=== PATIENT | female | born 1970 | race Hispanic/Latino ===

== ENCOUNTER 2017-11-16 15:42 | Emergency (ER) | payer MEDICARE ==
[2017-11-16] MEDS ORDERED: IOPAMIDOL-370 75 ML VIAL IV ONE (16:12)
[2017-11-16 16:23] LABS: APPEARANCE,URINE CLOUDY (CLEAR); BILIRUBIN,URINE NEGATIVE (NEGATIVE); COLOR,URINE YELLOW (YELLOW); GLUCOSE, URINE (UA) >=1000 mg/dL (NEGATIVE); KETONES,URINE 40 mg/dL (NEGATIVE); LEUKOCYTE ESTERASE ,URINE NEGATIVE (NEGATIVE); NITRATE,URINE NEGATIVE (NEGATIVE); OCCULT BLOOD,URINE NEGATIVE (NEGATIVE); PROTEIN,URINE NEGATIVE (NEGATIVE); UROBILINOGEN,URINE 0.2 mg/dL (0.2-1.0)
[2017-11-16 16:34] LABS: CREATININE 0.6 mg/dL (0.5-1.5); POTASSIUM 3.5 mmol/L (3.5-5.1)
[2017-11-16 16:36] LABS: BACTERIA,URINE Few /HPF (None Seen); MUCUS,URINE Few LPF (None Seen); RBC,URINE 0-1 /HPF (0-1); SQUAMOUS EPITHELIAL CELL,UR Moderate /HPF (0-2); WBC,URINE 0-1 /HPF (0-1)
[2017-11-16 16:39] LABS: ALBUMIN 3.4 g/dL (3.5-5.0); BILIRUBIN,DIRECT 0.1 mg/dL (0.0-0.3); BILIRUBIN,TOTAL 0.5 mg/dL (0.2-1.0)
[2017-11-16 16:44] LABS: BASOPHILS % (AUTO) 0.3 % (0.0-5.0); EOSINOPHILS % (AUTO) 1.5 % (0.0-8.0); HEMATOCRIT 37.7 % (36-48); LYMPHOCYTES % (AUTO) 20.3 % (21.0-51.0); MEAN CORPUSCULAR HEMOGLOBIN 31.6 pg (27.0-33.0); MEAN CORPUSCULAR HGB CONC 35.1 g/dL (32.0-36.0); MEAN CORPUSCULAR VOLUME 90.1 fL (79-99); MONOCYTES % (AUTO) 6.3 % (3.0-13.0); NEUTROPHILS % (AUTO) 71.6 % (40.0-77.0); PLATELET COUNT (AUTO) 302 K/uL (130-400); RED BLOOD CELL COUNT(AUTO) 4.18 MIL/uL (4.00-5.50); WHITE BLOOD COUNT (AUTO) 12.1 K/uL (4.8-10.8)
[2017-11-16] MEDS ORDERED: ONDANSETRON HCL 4 MG/2 ML VIAL ONE (18:15)
[2017-11-16] MEDS ORDERED: LIDOCAINE HCL-MPF 1% 2ML VIAL ONE (18:15)
[2017-11-16] MEDS ORDERED: MORPHINE SULFATE 2 MG/ML 1ML SYG ONE (18:16)
== END 2017-11-16 18:43 | disposition home or self-care (01) ==
LOC: EDH 15:42
DX: L02.214 Cutaneous abscess of groin (principal); J44.9 Chronic obstructive pulmonary disease, unspecified; E11.9 Type 2 diabetes mellitus without complications; E78.5 Hyperlipidemia, unspecified; I10 Essential (primary) hypertension; Z86.73 Personal history of transient ischemic attack (TIA), and cerebral infarction without residual deficits; Z88.2 Allergy status to sulfonamides; Z88.8 Allergy status to other drugs, medicaments and biological substances; Z90.49 Acquired absence of other specified parts of digestive tract; Z79.4 Long term (current) use of insulin; Z72.0 Tobacco use
CPT/HCPCS: 10060; 36415; 72193; 80048; 80076; 81001; 85025; 96374; 96375; 99285; J2405; J3490; Q9967

== ENCOUNTER 2018-05-15 00:05 | Emergency (ER) | payer MEDICARE ==
[2018-05-15] MEDS ORDERED: METHYLPREDNISOLONE SOD SUCC 40MG/ML 1ML ONE (01:24)
[2018-05-15] MEDS ORDERED: ORPHENADRINE CITRATE 30 MG/ML ML ONE (01:24)
[2018-05-15] MEDS ORDERED: KETOROLAC TROMETHAMINE 30MG/ML ONE (01:25)
== END 2018-05-15 02:44 | disposition home or self-care (01) ==
LOC: EDH 00:05
DX: M54.16 Radiculopathy, lumbar region (principal); J44.9 Chronic obstructive pulmonary disease, unspecified; E78.5 Hyperlipidemia, unspecified; E11.9 Type 2 diabetes mellitus without complications; I10 Essential (primary) hypertension; Z86.73 Personal history of transient ischemic attack (TIA), and cerebral infarction without residual deficits; Z79.4 Long term (current) use of insulin; Z90.49 Acquired absence of other specified parts of digestive tract; Z90.710 Acquired absence of both cervix and uterus; Z72.0 Tobacco use; Z88.2 Allergy status to sulfonamides; Z88.1 Allergy status to other antibiotic agents
CPT/HCPCS: 96372 ×3; 99283; A4218; J1885; J2360; J2920

== ENCOUNTER 2018-06-11 16:58 | Emergency (ER) | payer MEDICARE ==
[2018-06-11] MEDS ORDERED: KETOROLAC TROMETHAMINE 15MG/ML ONE ×2 (18:11→20:12)
[2018-06-11 18:28] LABS: BASOPHILS % (AUTO) 1.3 % (0.0-5.0); EOSINOPHILS % (AUTO) 1.8 % (0.0-8.0); HEMATOCRIT 37.5 % (36-48); LYMPHOCYTES % (AUTO) 29.6 % (21.0-51.0); MEAN CORPUSCULAR HEMOGLOBIN 37.8 pg (27.0-33.0); MEAN CORPUSCULAR HGB CONC 42.3 g/dL (32.0-36.0); MEAN CORPUSCULAR VOLUME 89.4 fL (79-99); MONOCYTES % (AUTO) 5.7 % (3.0-13.0); NEUTROPHILS % (AUTO) 61.6 % (40.0-77.0); NUCLEATED RED BLOOD CELLS 0.2 % (0.0-0.19); PLATELET COUNT (AUTO) 272 K/uL (130-400); RED CELL DISTRIBUTION WIDTH 12.9 % (11.0-15.5); WHITE BLOOD COUNT (AUTO) 7.3 K/uL (4.8-10.8)
[2018-06-11 18:32] LABS: APPEARANCE,URINE Clear (CLEAR); BILIRUBIN,URINE Negative (NEGATIVE); COLOR,URINE Yellow (YELLOW); GLUCOSE, URINE (UA) >=1000 mg/dL (NEGATIVE); KETONES,URINE Negative (NEGATIVE); LEUKOCYTE ESTERASE ,URINE Negative (NEGATIVE); NITRATE,URINE Negative (NEGATIVE); OCCULT BLOOD,URINE Negative (NEGATIVE); PH,URINE 5.5 (5.0-8.0); PROTEIN,URINE Negative (NEGATIVE); UROBILINOGEN,URINE 0.2 mg/dL (0.2-1.0)
[2018-06-11 18:52] LABS: POTASSIUM 4.2 mmol/L (3.5-5.1)
[2018-06-11] MEDS ORDERED: SODIUM CHLORIDE 0.9% 1000ML 1,000 ML IV ONE (19:17)
[2018-06-11] MEDS ORDERED: INSULIN HUMULIN R 100 UNIT/ML 3ML ONE ×2 (19:22→19:31)
[2018-06-11 19:24] LABS: CREATININE 0.4 mg/dL (0.5-1.5)
[2018-06-11 19:25] LABS: BILIRUBIN,TOTAL 0.2 mg/dL (0.2-1.0)
[2018-06-11 19:26] LABS: ALBUMIN 3.1 g/dL (3.5-5.0); TOTAL PROTEIN, SERUM 5.6 g/dL (6.0-8.3)
[2018-06-11 19:59] LABS: ABG HCO3 22.2 mmol/L (21.0-28.0); ABG OXYGEN SATURATION 96.3 % (95.0-99.0); ABG PCO2 37 mmHg (32-45)
== END 2018-06-11 20:24 | disposition home or self-care (01) ==
LOC: EDH 16:58
DX: M54.16 Radiculopathy, lumbar region (principal); G89.29 Other chronic pain; I10 Essential (primary) hypertension; E11.9 Type 2 diabetes mellitus without complications; J44.9 Chronic obstructive pulmonary disease, unspecified; E78.5 Hyperlipidemia, unspecified; Z90.710 Acquired absence of both cervix and uterus; Z90.49 Acquired absence of other specified parts of digestive tract; Z86.73 Personal history of transient ischemic attack (TIA), and cerebral infarction without residual deficits; Z98.890 Other specified postprocedural states; Z72.0 Tobacco use; Z79.4 Long term (current) use of insulin; Z88.2 Allergy status to sulfonamides; Z88.1 Allergy status to other antibiotic agents
CPT/HCPCS: 36415; 36600; 74176; 80053; 81003; 82803; 82948; 83690; 85025; 96374; 96375; 96376; 99284; J1815 ×2; J1885 ×2; J7030

== ENCOUNTER → 2018-06-16 | Outpatient (CLI) | payer MEDICARE ==
[2018-06-16 13:33] LABS: CREATININE 0.5 mg/dL (0.5-1.5)
== END | disposition home or self-care (01) ==
LOC: LAB 12:45
PROVIDERS: ATTEND Neurological Surgery
DX: M54.16 Radiculopathy, lumbar region (principal)
CPT/HCPCS: 36415; 82565; 84520

== ENCOUNTER → 2018-06-17 | Outpatient (CLI) | payer MEDICARE ==
[~2018-06-17] MED LIST: GADODIAMIDE 10 MMOL/20 ML ML IV ONE
== END | disposition home or self-care (01) ==
LOC: RAH 11:00
PROVIDERS: ATTEND Neurological Surgery
DX: M51.27 Other intervertebral disc displacement, lumbosacral region (principal); M48.07 Spinal stenosis, lumbosacral region; N28.1 Cyst of kidney, acquired; M51.37 Other intervertebral disc degeneration, lumbosacral region
CPT/HCPCS: 72158; A9579

== ENCOUNTER 2018-06-19 04:15 | Emergency (ER) | payer MEDICARE ==
[2018-06-19 05:05] LABS: EOSINOPHILS % (AUTO) 1.8 % (0.0-8.0); HEMATOCRIT 38.9 % (36-48); LYMPHOCYTES % (AUTO) 42.6 % (21.0-51.0); MEAN CORPUSCULAR HEMOGLOBIN 31.1 pg (27.0-33.0); MEAN CORPUSCULAR HGB CONC 34.7 g/dL (32.0-36.0); MEAN CORPUSCULAR VOLUME 89.6 fL (79-99); MONOCYTES % (AUTO) 6.3 % (3.0-13.0); NEUTROPHILS % (AUTO) 48.3 % (40.0-77.0); NUCLEATED RED BLOOD CELLS 0.3 % (0.0-0.19); PLATELET COUNT (AUTO) 262 K/uL (130-400); RED BLOOD CELL COUNT(AUTO) 4.34 MIL/uL (4.00-5.50); RED CELL DISTRIBUTION WIDTH 12.9 % (11.0-15.5); WHITE BLOOD COUNT (AUTO) 8.6 K/uL (4.8-10.8)
[2018-06-19 05:11] LABS: APPEARANCE,URINE Clear (CLEAR); BILIRUBIN,URINE Negative (NEGATIVE); COLOR,URINE Yellow (YELLOW); GLUCOSE, URINE (UA) >=1000 mg/dL (NEGATIVE); KETONES,URINE 15 mg/dL (NEGATIVE); LEUKOCYTE ESTERASE ,URINE Negative (NEGATIVE); NITRATE,URINE Negative (NEGATIVE); OCCULT BLOOD,URINE Negative (NEGATIVE); PH,URINE 5.5 (5.0-8.0); PROTEIN,URINE Negative (NEGATIVE); UROBILINOGEN,URINE 0.2 mg/dL (0.2-1.0)
[2018-06-19 05:13] LABS: CREATININE 0.5 mg/dL (0.5-1.5)
[2018-06-19 05:17] LABS: ALBUMIN 3.1 g/dL (3.5-5.0); BILIRUBIN,TOTAL 0.6 mg/dL (0.2-1.0); TOTAL PROTEIN, SERUM 7.9 g/dL (6.0-8.3)
[2018-06-19 05:20] LABS: BACTERIA,URINE None Seen /HPF (None Seen); MUCUS,URINE Rare LPF (None Seen); RBC,URINE 0-1 /HPF (0-1); SQUAMOUS EPITHELIAL CELL,UR Few /HPF (0-2); WBC,URINE None Seen /HPF (0-1); YEAST,URINE BUDDING None Seen /HPF (None Seen)
[2018-06-19] MEDS ORDERED: LORAZEPAM 2 MG/ML 1 ML VIAL ONE (05:48)
== END 2018-06-19 06:45 | disposition home or self-care (01) ==
LOC: EDH 04:15
DX: R07.9 Chest pain, unspecified (principal); R06.02 Shortness of breath; F41.9 Anxiety disorder, unspecified; J44.9 Chronic obstructive pulmonary disease, unspecified; E11.9 Type 2 diabetes mellitus without complications; E78.5 Hyperlipidemia, unspecified; I10 Essential (primary) hypertension; Z86.73 Personal history of transient ischemic attack (TIA), and cerebral infarction without residual deficits; Z79.4 Long term (current) use of insulin; Z90.49 Acquired absence of other specified parts of digestive tract; Z90.710 Acquired absence of both cervix and uterus; Z88.2 Allergy status to sulfonamides; Z88.1 Allergy status to other antibiotic agents
CPT/HCPCS: 36415; 71045; 80053; 81001; 84484; 85025; 93005; 96374; 99284; J2060

== ENCOUNTER → 2018-08-18 | Outpatient (CLI) | payer MEDICARE | END | disposition home or self-care (01) | LOC: RAH 09:43 | PROVIDERS: ATTEND Physical Medicine & Rehabilitation | DX: M54.16 Radiculopathy, lumbar region (principal); M54.12 Radiculopathy, cervical region | CPT/HCPCS: 72052; 72114 ==

== ENCOUNTER → 2018-10-28 | Outpatient (CLI) | payer MEDICARE | END | disposition home or self-care (01) | LOC: RAH 09:41 | PROVIDERS: ATTEND Neurological Surgery | DX: M51.16 Intervertebral disc disorders with radiculopathy, lumbar region (principal) | CPT/HCPCS: 72148 ==

== ENCOUNTER 2018-11-05 05:51 | Inpatient (IN) | payer MEDICARE ==
[2018-10-31 12:17] LABS: BASOPHILS % (AUTO) 0.7 % (0.0-5.0); EOSINOPHILS % (AUTO) 1.6 % (0.0-8.0); HEMATOCRIT 39.1 % (36-48); LYMPHOCYTES % (AUTO) 33.7 % (21.0-51.0); MEAN CORPUSCULAR HEMOGLOBIN 31.8 pg (27.0-33.0); MEAN CORPUSCULAR HGB CONC 35.3 g/dL (32.0-36.0); MEAN CORPUSCULAR VOLUME 90.1 fL (79-99); MONOCYTES % (AUTO) 5.5 % (3.0-13.0); NEUTROPHILS % (AUTO) 58.5 % (40.0-77.0); NUCLEATED RED BLOOD CELLS 0.1 % (0.0-0.19); PLATELET COUNT (AUTO) 271 K/uL (130-400); RED BLOOD CELL COUNT(AUTO) 4.34 MIL/uL (4.00-5.50); RED CELL DISTRIBUTION WIDTH 12.8 % (11.0-15.5); WHITE BLOOD COUNT (AUTO) 7.9 K/uL (4.8-10.8)
[2018-10-31 12:25] LABS: CREATININE 0.6 mg/dL (0.5-1.5); POTASSIUM 3.8 mmol/L (3.5-5.1)
[2018-10-31 12:36] VITALS: BP 139/86
--- NOTE | 2018-11-04 12:26 | NUR ---
LABS INFORMED DR. FRIEDA GÓMEZ ASST OF ABNORMAL SODIUM. ORDERS RECEIVED PER DR. MALAVE TO REPEAT BMP ON AM OF PROCEDURE.
[~2018-11-05] VITALS: Ht 163.8 cm; Wt 81.1 kg
[2018-11-05] VITALS (22 sets, daily range): BP systolic 127–155; BP diastolic 76–97
[~2018-11-05 05:51] MED LIST changes: +ALBU1.252 IH; +ALLO100T PO; +ALPR2TAB2 PO; +AMIT50TA3 PO; +FURO-152 PO; +GABA-531 PO; -GADODIAMIDE 10 MMOL/20 ML ML IV ONE; +INSU10VI3 SQ; +INSU3INS9 SQ; +MONT10TA21 PO; +NITR0.4T50 SL; +RIZA10TA27 PO; +ROPI1TAB11 PO
[2018-11-05] MEDS ORDERED: SODIUM CHLORIDE 0.9% 1000ML 1,000 ML IV ONE (06:40)
[2018-11-05] MEDS ORDERED: CLINDAMYCIN 900 MG/D5% WATER 50 ML IV ONE (06:40)
[2018-11-05 07:22] LABS: CREATININE 0.5 mg/dL (0.5-1.5); POTASSIUM 3.6 mmol/L (3.5-5.1)
[2018-11-05] MEDS ORDERED: PROPOFOL 10 MG/ML 20ML VIAL IV ONE (07:31)
[2018-11-05] MEDS ORDERED: SUCCINYLCHOLINE 200MG/10ML SYR ONE (07:31)
[2018-11-05] MEDS ORDERED: DEXAMETHASONE SOD PHOSPHATE 10MG/ML 1ML VIAL ONE (07:31)
[2018-11-05] MEDS ORDERED: LIDOCAINE PF 2% 5ML ABBOJECT ONE (07:31)
[2018-11-05] MEDS ORDERED: ONDANSETRON HCL 4 MG/2 ML VIAL ONE (07:32)
[2018-11-05] MEDS ORDERED: NEOSTIGMINE 5MG/5ML SYR IV ONE (07:32)
[2018-11-05] MEDS ORDERED: FENTANYL CITRATE PF 50 MCG/1 ML 2ML VIAL ONE ×3 (07:32→11:45)
[2018-11-05] MEDS ORDERED: ROCURONIUM 10MG/1ML SYR 10 MG/ML ML ONE (07:32)
[2018-11-05] MEDS ORDERED: MIDAZOLAM HCL 1 MG/ML 2ML VIAL ONE (07:32)
[2018-11-05] MEDS ORDERED: GLYCOPYRROLATE 1 MG/5 ML SYRINGE ONE (07:32)
[2018-11-05] MEDS ORDERED: BUPIVACAINE/EPI/PF 0.25% 30ML VIAL IJ ONE (08:57)
[2018-11-05] MEDS ORDERED: DURAMORPH PF1 MG/ML 10ML AMP IV ONE (08:58)
[2018-11-05] MEDS ORDERED: THROMBIN-JMI 20000 UNIT KIT TP ONE (08:59)
[2018-11-05] MEDS ORDERED: BACITRACIN 50,000 UNIT VIAL ONE (08:59)
[2018-11-05] MEDS ORDERED: LACTATED RINGERS 1000ML 1,000 ML IV SCH (12:33)
[2018-11-05] MEDS ORDERED: MORPHINE SULFATE 2 MG/ML 1ML SYG IVP PRN (12:45)
[2018-11-05] MEDS ORDERED: SODIUM CHLORIDE 0.9% 10 ML VIAL IVP PRN (12:45)
[2018-11-05] MEDS ORDERED: ALBUTEROL SULFATE 0.042% 1.25 MG/3 ML INH IH PRN (12:45)
[2018-11-05] MEDS: DEXAMETHASONE SOD PHOSPHATE 4 MG/ML 1ML VIAL IVP SCH ×2 (12:45→20:53)
[2018-11-05] MEDS ORDERED: NITROGLYCERIN 0.4 MG SL TAB SL PRN (12:45)
[2018-11-05] MEDS ORDERED: PROMETHAZINE HCL 25 MG/ML 1ML AMPULE IM PRN (12:45)
[2018-11-05] MEDS ORDERED: MEPERIDINE-PF 25 MG/ML SYG ONE ×2 (12:51→13:00)
--- NOTE | 2018-11-05 13:16 | NUR ---
PATIENT TRYING TO QUIT, DOWN TO 2 CIGARETTES A WEEK Addendum: 11/05/18 at 1326 by DELANEY LANDEROS RT Amended: Links added.
[2018-11-05] MEDS ORDERED: INSULIN HUMULIN R 100 UNIT/ML 3ML ONE (13:27)
--- NOTE | 2018-11-05 13:50 | NUR ---
PT ARRIVED TO THE FLOOR , DENIES SOB OR CHEST PAIN VITAL SIGNS STABLE WILL CONTINUE TO MONITOR CALL LIGHT AT REACH W TEACH BACK GONZALEZ CCESSFULLY
[2018-11-05] MEDS: GABAPENTIN 300 MG CAPSULE PO SCH ×2 (14:00→20:49)
[2018-11-05] MEDS: CLINDAMYCIN 900 MG/D5% WATER 50 ML IV SCH ×2 (16:08→18:45)
[2018-11-05] MEDS: INSULIN HUMULIN 70/30 100 UNIT/ML 3ML SQ SCH (16:14)
--- NOTE | 2018-11-05 17:10 | NUR ---
INITIAL Met w patient / family at bedside, aaox3, live w son, daughter to provide ride at discharge; has a cane at hoem, no stairs shower chair; home health to be set up by dr. gomez's office and pt is aware ([facility]) dcp home, no concerns voiced Addendum: 11/06/18 at 1437 by ALBERTO FLETCHER RN CM Amended: Links added.
[2018-11-05] MEDS: ALPRAZOLAM 1 MG TAB PO SCH (20:56)
[2018-11-05] MEDS ORDERED: ROPINIROLE HCL 1 MG TABLET PO SCH (21:00)
[2018-11-05] MEDS ORDERED: AMITRIPTYLINE HCL 25 MG TABLET PO SCH (21:00)
[2018-11-06] MEDS: HYDROCODONE/ACETAMINOPHEN 5/325 MG TAB PO PRN ×2 (00:07→09:27)
[2018-11-06 00:16] VITALS: BP 135/80
[2018-11-06] MEDS: CLINDAMYCIN 900 MG/D5% WATER 50 ML IV SCH (00:45)
[2018-11-06] MEDS: DEXAMETHASONE SOD PHOSPHATE 4 MG/ML 1ML VIAL IVP SCH ×2 (02:43→09:20)
[2018-11-06] MEDS ORDERED: DEXTROSE 50%-WATER 50 ML DISP.SYRIN IV PRN (03:00)
[2018-11-06] MEDS ORDERED: GLUCAGON 1MG KIT 1 MG ML IM PRN (03:00)
[2018-11-06 04:45] VITALS: BP 110/70
[2018-11-06] MEDS ORDERED: CLINDAMYCIN 900 MG/D5% WATER 50 ML IV SCH (06:00)
[2018-11-06] MEDS: INSULIN HUMULIN 70/30 100 UNIT/ML 3ML SQ SCH (07:10)
[2018-11-06] MEDS ORDERED: INSULIN HUMULIN R 100 UNIT/ML 3ML SQ SCH (07:30)
[2018-11-06 08:00] VITALS: BP 106/66
[2018-11-06] MEDS ORDERED: MONTELUKAST SODIUM 10 MG TAB PO SCH (09:00)
[2018-11-06] MEDS: ALPRAZOLAM 1 MG TAB PO SCH (09:00)
[2018-11-06] MEDS ORDERED: INSULIN DEGLUDEC SQ SCH (09:00)
[2018-11-06] MEDS ORDERED: LIRAGLUTIDE SQ SCH (09:00)
[2018-11-06] MEDS ORDERED: FUROSEMIDE 20 MG TABLET PO SCH (09:00)
[2018-11-06] MEDS ORDERED: ALLOPURINOL 100 MG TABLET PO SCH (09:00)
[2018-11-06] MEDS: GABAPENTIN 300 MG CAPSULE PO SCH (09:26)
[2018-11-06] MEDS ORDERED: MAXALT 10 MG PO SCH (12:00)
--- NOTE | 2018-11-06 12:25 | NUR ---
DISCHARGE DISCHARGE TEACHING DONE WITH PATIENT AND FAMILY USING TEACHBACK METHOD, VERBALIZED UNDERSTANDING. NO NOTED SOB OR DISTRESS. NEW MEDICATION ADMINISTRATION TEACHING DONE WITH PATIENT AND FAMILY USING TEACHBACK METHOD, VERBALIZED UNDERSTANDING. PT AWARE OF NEED TO ATTEND DR. MALAVE APPOINTMENT, STAPLE REMOVAL KIT GIVEN TO DAUGHTER. DRESSING TO LOWER BACK CHANGED PER ORDERS, DRY DRESSING APPLIED. LALA ARE INTACT, INCISION IS WELL APPROXIMATED. IV REMOVED, CATH TIP INTACT. PENDING TO BE TRANSFERRED OUT VIA PRIVATE VEHICLE.
== END 2018-11-06 11:30 | disposition home health service (06) | DRG 520 ==
LOC: DAHIP 05:51 → 4AH 13:19
PROVIDERS: ADMIT Neurological Surgery; ATTEND Neurological Surgery
PROC: BR1B1ZZ Fluoroscopy of Lumbosacral Joint using Low Osmolar Contrast (ICD-10-PCS; 2018-11-05)
PROC: 4A11X4G Monitoring of Peripheral Nervous Electrical Activity, Intraoperative, External Approach (ICD-10-PCS; 2018-11-05)
PROC: 01NB0ZZ Release Lumbar Nerve, Open Approach (ICD-10-PCS; 2018-11-05)
PROC: 0SB20ZZ Excision of Lumbar Vertebral Disc, Open Approach (ICD-10-PCS; principal; 2018-11-05 08:56)
PROC: 0SB40ZZ Excision of Lumbosacral Disc, Open Approach (ICD-10-PCS; 2018-11-05 08:56)
PROC: BR191ZZ Fluoroscopy of Lumbar Spine using Low Osmolar Contrast (ICD-10-PCS; 2018-11-05 08:56)
DX: M51.16 Intervertebral disc disorders with radiculopathy, lumbar region (principal); M51.17 Intervertebral disc disorders with radiculopathy, lumbosacral region; E66.9 Obesity, unspecified; Z90.49 Acquired absence of other specified parts of digestive tract; Z90.711 Acquired absence of uterus with remaining cervical stump; Z88.2 Allergy status to sulfonamides; Z88.8 Allergy status to other drugs, medicaments and biological substances; Z68.30 Body mass index [BMI] 30.0-30.9, adult
CPT/HCPCS: 36415; 36591; 71045; 72020; 80048; 82948; 85025; 94664; 97039; A4344; G0378; J0330; J1100; J1815; J2001; J2175; J2250; J2274; J2405; J2704; J2710; J3010; J3490; J7030; J7120

== ENCOUNTER → 2019-02-20 | Outpatient (CLI) | payer MEDICARE | END | disposition home or self-care (01) | LOC: RAH 12:53 | PROVIDERS: ATTEND Physical Medicine & Rehabilitation | DX: M51.16 Intervertebral disc disorders with radiculopathy, lumbar region (principal); M48.061 Spinal stenosis, lumbar region without neurogenic claudication | CPT/HCPCS: 72148 ==

== ENCOUNTER → 2019-03-16 | Outpatient (CLI) | payer MEDICARE | END | disposition home or self-care (01) | LOC: RAH 09:59 | PROVIDERS: ATTEND Physical Medicine & Rehabilitation | DX: M25.562 Pain in left knee (principal) | CPT/HCPCS: 73562 ==

== ENCOUNTER 2021-03-03 12:51 | Emergency (ER) | payer MEDICARE ==
[~2021-03-03] VITALS: Ht 162.6 cm; Wt 76.2 kg
[~2021-03-03 12:51] MED LIST changes: -ROPI1TAB11 PO; +ROPI1TAB13 PO
[2021-03-03 13:17] LABS: BASOPHILS % (AUTO) 0.3 % (0.0-5.0); EOSINOPHILS % (AUTO) 1.3 % (0.0-8.0); HEMATOCRIT 40.8 % (36-48); LYMPHOCYTES % (AUTO) 35.7 % (21.0-51.0); MEAN CORPUSCULAR HEMOGLOBIN 30.3 pg (27.0-33.0); MEAN CORPUSCULAR HGB CONC 34.1 g/dL (32.0-36.0); MEAN CORPUSCULAR VOLUME 88.9 fL (79-99); MONOCYTES % (AUTO) 5.6 % (3.0-13.0); NEUTROPHILS % (AUTO) 56.8 % (40.0-77.0); PLATELET COUNT (AUTO) 265 K/uL (130-400); RED BLOOD CELL COUNT(AUTO) 4.59 MIL/uL (4.00-5.50); RED CELL DISTRIBUTION WIDTH 12.5 % (11.0-15.5); WHITE BLOOD COUNT (AUTO) 8.9 K/uL (4.8-10.8)
[2021-03-03 13:26] LABS: CREATININE 0.7 mg/dL (0.5-1.5); POTASSIUM 3.6 mmol/L (3.5-5.1)
[2021-03-03 13:30] LABS: ALBUMIN 3.6 g/dL (3.5-5.0); BILIRUBIN,TOTAL 0.3 mg/dL (0.2-1.0); TOTAL PROTEIN, SERUM 8.1 g/dL (6.0-8.3)
[2021-03-03 13:37] VITALS: BP 145/94
[2021-03-03 13:46] LABS: APPEARANCE,URINE Clear (CLEAR); BILIRUBIN,URINE Negative (NEGATIVE); COLOR,URINE Yellow (YELLOW); GLUCOSE, URINE (UA) >=1000 mg/dL (NEGATIVE); KETONES,URINE Trace mg/dL (NEGATIVE); LEUKOCYTE ESTERASE ,URINE Negative (NEGATIVE); NITRATE,URINE Negative (NEGATIVE); OCCULT BLOOD,URINE Negative (NEGATIVE); PH,URINE 5.5 (5.0-8.0); PROTEIN,URINE Negative (NEGATIVE); UROBILINOGEN,URINE 0.2 mg/dL (0.2-1.0)
[2021-03-03 14:19] LABS: BACTERIA,URINE Few /HPF (None Seen); MUCUS,URINE Moderate LPF (None Seen); RBC,URINE 0-1 /HPF (0-1); WBC,URINE 0-1 /HPF (0-1)
[2021-03-03] MEDS ORDERED: DIATR MEGLU/DIATRIZOATE SODIUM 30 ML BOTTLE ONE (14:22)
[2021-03-03] MEDS ORDERED: MORPHINE 4 MG SYG IV ONE (14:25)
[2021-03-03] MEDS ORDERED: ONDANSETRON 4MG INJ ONE (14:27)
[2021-03-03] MEDS ORDERED: MORPHINE 4 MG SYG ONE (14:28)
[2021-03-03] MEDS ORDERED: ONDANSETRON 4MG INJ IVP ONE (14:30)
[2021-03-03] MEDS ORDERED: IOHEXOL-350 75 ML VIAL IV ONE (14:38)
[2021-03-03] MEDS ORDERED: DICY20TA2 PO (16:04)
== END 2021-03-03 16:19 | disposition home or self-care (01) ==
LOC: EDH 12:51
DX: R10.31 Right lower quadrant pain (principal); E11.9 Type 2 diabetes mellitus without complications; E78.5 Hyperlipidemia, unspecified; I10 Essential (primary) hypertension; J44.9 Chronic obstructive pulmonary disease, unspecified; Z79.899 Other long term (current) drug therapy; Z79.4 Long term (current) use of insulin; Z88.1 Allergy status to other antibiotic agents
CPT/HCPCS: 36415; 74177; 80053; 81001; 82150; 83690; 85025; 96374; 96375; 99285; J2270; J2405; Q9963; Q9967

== ENCOUNTER 2021-07-26 06:26 | Day surgery (SDC) | payer MEDICARE ==
[2021-07-24 09:32] LABS: BASOPHILS % (AUTO) 0.4 % (0.0-5.0); EOSINOPHILS % (AUTO) 2.6 % (0.0-8.0); HEMATOCRIT 40.4 % (36-48); LYMPHOCYTES % (AUTO) 33.5 % (21.0-51.0); MEAN CORPUSCULAR HEMOGLOBIN 30.8 pg (27.0-33.0); MEAN CORPUSCULAR HGB CONC 34.7 g/dL (32.0-36.0); MONOCYTES % (AUTO) 6.3 % (3.0-13.0); NEUTROPHILS % (AUTO) 56.9 % (40.0-77.0); PLATELET COUNT (AUTO) 294 K/uL (130-400); RED BLOOD CELL COUNT(AUTO) 4.54 MIL/uL (4.00-5.50); RED CELL DISTRIBUTION WIDTH 12.6 % (11.0-15.5); WHITE BLOOD COUNT (AUTO) 8.9 K/uL (4.8-10.8)
[2021-07-24 09:41] LABS: CREATININE 0.5 mg/dL (0.5-1.5); POTASSIUM 4.1 mmol/L (3.5-5.1)
[2021-07-25 11:08] VITALS: BP 130/90
[2021-07-26] VITALS (17 sets, daily range): BP systolic 110–151; BP diastolic 78–99
[~2021-07-26] VITALS: Ht 162.6 cm; Wt 75.7 kg
[~2021-07-26 06:26] MED LIST changes: -ALLO100T PO; -ALPR2TAB2 PO; -AMIT50TA3 PO; +CETI10CA5 PO; +EMPA25TA PO; -FURO-152 PO; -INSU10VI3 SQ; -INSU3INS9 SQ; +LISI1TAB51 PO; +MELO15TA12 PO; -MONT10TA21 PO; -NITR0.4T50 SL; -RIZA10TA27 PO; -ROPI1TAB13 PO; +ROSU40TA21 PO; +SEMA1PEN3 SQ
[2021-07-26] MEDS ORDERED: PROPOFOL 10 MG/ML 20ML VIAL IV ONE (07:04)
[2021-07-26] MEDS ORDERED: FENTANYL CITRATE PF 50 MCG/1 ML 2ML VIAL ONE (07:04)
[2021-07-26] MEDS ORDERED: LIDOCAINE PF 100MG/5ML (2%) SYRINGE 5ML ONE (07:04)
[2021-07-26] MEDS ORDERED: MIDAZOLAM HCL 1 MG/ML 2ML VIAL ONE (07:05)
[2021-07-26] MEDS ORDERED: 0.9%NACL 1000ML 1,000 ML IV ONE (07:11)
[2021-07-26] MEDS ORDERED: INSULIN HUMULIN R 100 UNIT/ML 3ML ONE (07:44)
[2021-07-26] MEDS: CLINDAMYCIN IVPB 900MG/50ML 50 ML IV SCH ×2 (08:00→08:30)
[2021-07-26] MEDS ORDERED: CLIN300C3 PO (09:25)
[2021-07-26] MEDS ORDERED: ACET1TAB25 PO (09:25)
[2021-07-26] MEDS ORDERED: MEPERIDINE-PF 25 MG/ML SYG ONE (09:58)
== END 2021-07-26 11:00 | disposition home or self-care (01) ==
LOC: DAH 06:26
PROVIDERS: ATTEND Orthopaedic Surgery
DX: M94.8X6 Other specified disorders of cartilage, lower leg (principal); M23.91 Unspecified internal derangement of right knee; Z20.822 Contact with and (suspected) exposure to COVID-19; M25.561 Pain in right knee; G89.29 Other chronic pain; E11.9 Type 2 diabetes mellitus without complications; I10 Essential (primary) hypertension; J45.909 Unspecified asthma, uncomplicated; E66.9 Obesity, unspecified; M10.9 Gout, unspecified; Z79.899 Other long term (current) drug therapy; Z90.710 Acquired absence of both cervix and uterus; Z98.890 Other specified postprocedural states; Z86.73 Personal history of transient ischemic attack (TIA), and cerebral infarction without residual deficits; Z98.891 History of uterine scar from previous surgery; Z87.891 Personal history of nicotine dependence; Z79.4 Long term (current) use of insulin
CPT/HCPCS: 29877; 36415; 80048; 82948 ×2; 85025; 87635; A4215; A4221; A4222; A4223; A4649; A4663; A4930 ×2; A6223; C9803; J1815; J2001; J2175; J2250; J2704; J3010; J3490; J7030; J7120

== ENCOUNTER → 2022-07-09 | Outpatient (CLI) | payer OTHER, MEDICARE ==
[~2022-07-09] MED LIST changes: +ACET-2079 PO; +CLIN300C3 PO
== END | disposition home or self-care (01) ==
LOC: SHCH 13:45
PROVIDERS: ATTEND Internal Medicine
DX: E78.5 Hyperlipidemia, unspecified (principal); I10 Essential (primary) hypertension
CPT/HCPCS: 93306

== ENCOUNTER → 2022-08-09 | Outpatient (CLI) | payer OTHER, MEDICARE | END | disposition home or self-care (01) | LOC: RAH 10:41 | PROVIDERS: ATTEND Internal Medicine | DX: I70.202 Unspecified atherosclerosis of native arteries of extremities, left leg (principal); R68.89 Other general symptoms and signs | CPT/HCPCS: 93925 ==

== ENCOUNTER 2022-12-10 05:59 | Day surgery (SDC) | payer OTHER, MEDICARE ==
[2022-12-06 10:44] LABS: BASOPHILS % (AUTO) 0.4 % (0.0-5.0); EOSINOPHILS % (AUTO) 2.6 % (0.0-8.0); HEMATOCRIT 40.8 % (36-48); LYMPHOCYTES % (AUTO) 36.4 % (21.0-51.0); MEAN CORPUSCULAR HEMOGLOBIN 31.8 pg (27.0-33.0); MEAN CORPUSCULAR HGB CONC 35.3 g/dL (32.0-36.0); MEAN CORPUSCULAR VOLUME 90.1 fL (79-99); MONOCYTES % (AUTO) 6.7 % (3.0-13.0); NEUTROPHILS % (AUTO) 53.6 % (40.0-77.0); PLATELET COUNT (AUTO) 257 K/uL (130-400); RED BLOOD CELL COUNT(AUTO) 4.53 MIL/uL (4.00-5.50); RED CELL DISTRIBUTION WIDTH 12.3 % (11.0-15.5); WHITE BLOOD COUNT (AUTO) 7.3 K/uL (4.8-10.8)
[2022-12-06 11:00] LABS: APPEARANCE,URINE CLEAR (CLEAR); BILIRUBIN,URINE NEGATIVE (NEGATIVE); COLOR,URINE LIGHT-YELLOW (YELLOW); GLUCOSE, URINE (UA) >=1000 mg/dL (NEGATIVE); KETONES,URINE 10 mg/dL (NEGATIVE); LEUKOCYTE ESTERASE ,URINE NEGATIVE Leu/uL (NEGATIVE); NITRATE,URINE NEGATIVE (NEGATIVE); OCCULT BLOOD,URINE NEGATIVE (NEGATIVE); PH,URINE 5.5 (5.0-8.0); PROTEIN,URINE NEGATIVE (NEGATIVE); UROBILINOGEN,URINE 0.2 mg/dL (0.2-1.0)
[2022-12-06 11:02] VITALS: BP 131/83
[2022-12-06 11:08] LABS: INR 0.93 (0.85-1.15); PROTHROMBIN TIME 10.2 SEC (9.6-11.6)
[2022-12-06 11:10] LABS: PARTIAL THROMBOPLASTIN TIME 27.6 SEC (26.3-35.5)
[2022-12-06 11:14] LABS: POTASSIUM 4.3 mmol/L (3.5-5.1)
[2022-12-06 11:18] LABS: B-TYPE NATRIURETIC PEPTIDE 12 pg/mL (0-100)
[2022-12-06 11:33] LABS: BACTERIA,URINE RARE /HPF (None Seen); MUCUS,URINE RARE LPF (None Seen); SQUAMOUS EPITHELIAL CELL,UR RARE /HPF (0-2); WBC,URINE 0-1 /HPF (0-1)
[2022-12-06 12:06] LABS: CREATININE 0.6 mg/dL (0.5-1.5)
[~2022-12-10] VITALS: Ht 162.6 cm; Wt 74.8 kg
[2022-12-10] VITALS (8 sets, daily range): BP systolic 106–133; BP diastolic 62–85
[~2022-12-10 05:59] MED LIST changes: -ACET-2079 PO; -ALBU1.252 IH; +ALBU90AE IH; +ALPR1TAB7 PO; -CETI10CA5 PO; -CLIN300C3 PO; +EMPA1TAB19 PO; -EMPA25TA PO; +EVOL140S2 SQ; +FAMO40TA75 PO; +FLUT1BLS3 IH; -GABA-531 PO; +ICOS1CAP PO; +INSU100I13 SQ; -MELO15TA12 PO; +MONT-39 PO; +PIOG30TA10 PO; +PLEC3TAB2 PO; -SEMA1PEN3 SQ; +TIRZ5PEN SQ
[2022-12-10] MEDS ORDERED: 0.9%NACL 1000ML 1,000 ML IV ONE (06:43)
[2022-12-10] MEDS ORDERED: FENTANYL CITRATE PF 50 MCG/1 ML 2ML VIAL ONE (07:11)
[2022-12-10] MEDS ORDERED: NITROGLYCERIN 50MG VIAL ONE (07:11)
[2022-12-10] MEDS ORDERED: MIDAZOLAM HCL 1 MG/ML 2ML VIAL ONE (07:11)
[2022-12-10] MEDS ORDERED: LIDOCAINE HCL 400MG/20ML VIAL ONE (07:11)
[2022-12-10] MEDS ORDERED: IODIXANOL 320 MG/ML 100 ML VIAL ONE (07:11)
[2022-12-10] MEDS ORDERED: HEPARIN 10,000 UNIT/10ML (1,000 UNIT/ML) VIAL ONE (07:11)
[2022-12-10] MEDS ORDERED: DEXTROSE 50%-WATER 50 ML DISP.SYRIN IV PRN (08:30)
[2022-12-10] MEDS ORDERED: 0.9%NACL 1000ML 1,000 ML IV SCH (08:30)
[2022-12-10] MEDS ORDERED: GLUCAGON 1MG KIT 1 MG ML IM PRN (08:30)
== END 2022-12-10 10:10 | disposition home or self-care (01) ==
LOC: DAH 05:59
PROVIDERS: ATTEND Internal Medicine
DX: I70.211 Atherosclerosis of native arteries of extremities with intermittent claudication, right leg (principal); I70.0 Atherosclerosis of aorta; I10 Essential (primary) hypertension; E11.9 Type 2 diabetes mellitus without complications; M10.9 Gout, unspecified; F17.210 Nicotine dependence, cigarettes, uncomplicated; Z88.8 Allergy status to other drugs, medicaments and biological substances; Z79.01 Long term (current) use of anticoagulants; Z79.899 Other long term (current) drug therapy; Z86.73 Personal history of transient ischemic attack (TIA), and cerebral infarction without residual deficits; Z90.49 Acquired absence of other specified parts of digestive tract; Z90.710 Acquired absence of both cervix and uterus; Z98.890 Other specified postprocedural states; Z79.84 Long term (current) use of oral hypoglycemic drugs
CPT/HCPCS: 80048; 83880; 85025; 85610; 85730; 81001; 36415; 71045; 93005; 36247; 75625; 75716; 82948 ×2; A4223 ×3; C1894 ×2; C1760; C1769; J3010; J3490 ×2; J7030; J2250; J1644; Q9967; A4215; A4222; A4221; A4663; A4216; A4606; 96360; 96361; 99156; 99157

== ENCOUNTER → 2023-09-20 | Outpatient (CLI) | payer OTHER, MEDICARE ==
[~2023-09-20] MED LIST changes: +AMOX-426 PO; +SULF1TAB42 PO
== END | disposition home or self-care (01) ==
LOC: RAH 08:53
PROVIDERS: ATTEND Physician Assistant
DX: M62.830 Muscle spasm of back (principal)
CPT/HCPCS: 72100

== ENCOUNTER 2024-09-28 16:11 | Emergency (ER) | payer OTHER, MEDICARE ==
[~2024-09-28] VITALS: Ht 162.6 cm; Wt 75.7 kg
[~2024-09-28 16:11] MED LIST changes: -ROSU40TA21 PO; +ROSU40TA88 PO
--- NOTE | 2024-09-28 17:34 | ERN ---
General Chief Complaint: Face Pain/Problem Stated Complaint: HEADACHE,MULTIPLE COMPLAINTS Time Seen by MD: 17:00 Time Seen by Midlevel: 17:00 Source: patient History of Present Illness Initial Comments 54-year-old female with a past medical history of uncontrolled diabetes presenting to the emergency department for evaluation of left-sided neck pain. She initially noticed pain and swelling to the left side of her neck proximally 11 days ago. She was seen by her primary care doctor nine days ago and diagnosed with parotitis. She was started on Bactrim and is currently on day nine with little to no improvement. Denies any fever, chills, or any other symptoms at this time. She states the neck swelling worsens after she attempts to eat. Denies any other symptoms. Allergies: Coded Allergies: cefazolin (Unverified Allergy, Severe, swelling, hives, 12/01/13) Home Meds Active Scripts Amoxicillin/Potassium Clav (Augmentin 500-125 Tablet) 500 Mg-125 Mg Tablet, 1 EACH PO Q12H for 7 Days, #14 TAB 0 Refills Prov:ZOHRA ANSARI 07/25/23 Sulfamethoxazole/Trimethoprim (Bactrim Ds Tablet) 800 Mg-160 Mg Tablet, 1 TAB PO BID for 10 Days, #20 TAB 0 Refills Prov:ZOHRA ANSARI 07/25/23 Reported Medications Evolocumab (Repatha Syringe) 140 Mg/1 Ml Syringe, 140 MG SQ [id number], SYRINGE 12/07/22 Montelukast Sodium (Montelukast Sodium) 10 Mg Tablet, 10 MG PO DAILY, TAB 12/07/22 Icosapent Ethyl (Vascepa) 1 Gm Capsule, 2 GM PO BIDMEALS, CAP 12/07/22 Fluticasone/Umeclidin/Vilanter (Trelegy Ellipta 100-62.5-25) 1 Each Blst.w.dev, 1 EACH IH DAILYDINNER 12/07/22 Empagliflozin/Metformin HCl (Synjardy Xr 25-1,000 mg Tablet) 1 Each Tab.bp.24h, 1 EACH PO DAILY 12/07/22 Albuterol Sulfate (Proair Respiclick) 90 Mcg Aer.pow.ba, 1 PUFF IH Q4HPRN PRN for SHORTNESS OF BREATH/WHEEZING 12/07/22 Famotidine (Pepcid) 40 Mg Tablet, 40 MG PO DAILY, TAB 12/07/22 Alprazolam (Alprazolam) 1 Mg Tablet, 1.5 MG PO BID PRN for ANXIETY, TAB 12/07/22 Pioglitazone HCl (Actos) 30 Mg Tablet, 30 MG PO DAILY, TAB 12/06/22 Plecanatide (Trulance) 3 Mg Tablet, 3 MG PO AD PRN for CONSTIPATION, TAB 12/06/22 Insulin NPL/Insulin Lispro (Humalog Mix 75-25 Kwikpen) 100 Unit/1 Ml Insuln.pen, 22 UNITS SQ TIDMEALS, SYRINGE 12/06/22 Tirzepatide (Mounjaro) 5 Mg/0.5 Ml Pen.injctr, 5 MG SQ QWEEK 12/06/22 Rosuvastatin Calcium (Rosuvastatin Calcium) 40 Mg Tablet, 40 MG PO DAILY, TAB 07/25/21 Lisinopril/Hydrochlorothiazide (Lisinopril-Hctz 20-12.5 mg Tab) 1 Each Tablet, 1 EACH PO DAILY, TAB 07/25/21 Past Medical History Past Medical History: COPD, Diabetes-Type I, Diabetes-Type II, High Cholesterol, Hypertension Past Surgical History: Cholecystectomy, Other, Surgical History Other: BACK PAIN ROS Dictation CONSTITUTIONAL: Negative except for HPI HEAD/FACE: Negative except for HPI EENT: Negative except for HPI RESPIRATORY: Negative except for HPI GASTROINTESTINAL/ABDOMINAL: Negative except for HPI GENITOURINARY: Negative except for HPI MUSCULOSKELETAL: Negative except for HPI INTEGUMENTARY: Negative except for HPI NEUROLOGICAL/PSYCH: Negative except for HPI HEMATOLOGIC/LYMPHATIC: Negative except for HPI All Systems Negative, Except as noted above. 13 point review of systems assessed and all negative except for above. Physical Exam Physical Exam Dictation Vital Signs reviewed General Appearance: Alert, oriented x 3, no acute distress, well developed, nourished. Head and Face: non-traumatic. Eyes: PERRL, pink conjunctivas, eyelid no trauma, anterior chamber with arcus senilis. Ears: Pinnas intact and no signs of trauma or erythema ear canals clear and no discharge TM no erythema Nose: No discharge, no bleeding. Oropharynx: Mouth normal, tongue pink, pharynx clear,no erythema, tonsils no exudates, no abscesses noted, mucous membrane moist Neck: Supple, non-tender, swelling and tenderness to the left anterior neck overlying the anterior cervical chain, no JVD, no bruits Breast:Deferred Chest:No tenderness, no crepitus, no paradoxical movement, no retractions Lungs:Clear, well-ventilated, symmetric, no rales, no wheezing, no rhonchi, no s tridor, good breath sounds bilaterally Heart: Regular rate, regular rhythm, no murmur, no gallops Vascular: no peripheral edema, Abdomen: Soft, positive bowel sounds, nondistended, no guarding, nontender, no rebound, no masses no hepatomegaly, no splenomegaly, no Charles's sign, no hernias. Rectal: Deferred Genital: Deferred Neurological: Normal speech, motor function intact, sensory function intact Musculoskeletal: Neck nontender, full range of motion, back nontender, full range of motion, Extremities: nontender, full range of motion Skin: Color pink, dry, no turgor, no rash, no lacerations, no abrasions, no contusions. Lymphatic: Deferred Results Laboratory and Microbiology Lab and Micro Result Laboratory Tests Test 09/28/24 18:14 White Blood Count 11.7 K/uL (4.8-10.8) H Red Blood Count 4.62 MIL/uL (4.00-5.50) Hemoglobin 14.3 g/dL (12.0-16.0) Hematocrit 43.2 % (36-48) Mean Corpuscular Volume 93.5 fL (79-99) Mean Corpuscular Hemoglobin 31.0 pg (27.0-33.0) Mean Corpuscular Hemoglobin Concent 33.1 g/dL (32.0-36.0) Red Cell Distribution Width 12.9 % (11.0-15.5) Platelet Count 300 K/uL (130-400) Mean Platelet Volume 11.5 fL (7.5-10.5) H Immature Granulocyte % (Auto) 0.5 % (0-1) Neutrophils (%) (Auto) 60.5 % (40.0-77.0) Lymphocytes (%) (Auto) 30.8 % (21.0-51.0) Monocytes (%) (Auto) 6.7 % (3.0-13.0) Eosinophils (%) (Auto) 1.2 % (0.0-8.0) Basophils (%) (Auto) 0.3 % (0.0-5.0) Neutrophils # (Auto) 7.0 K/uL (1.8-7.7) Lymphocytes # (Auto) 3.6 K/uL (1.0-4.8) Monocytes # (Auto) 0.8 K/uL (0.1-1.0) Eosinophils # (Auto) 0.14 K/uL (0.00-0.70) Basophils # (Auto) 0.04 K/uL (0.00-0.20) Absolute Immature Granulocyte (auto 0.06 K/uL (0-1) Nucleated Red Blood Cells 0.0 % (0.0-0.19) Sodium Level 136 mmol/L (136-145) Potassium Level 4.1 mmol/L (3.5-5.1) Chloride Level 98 mmol/L (101-111) L Carbon Dioxide Level 29 mmol/L (21-32) Blood Urea Nitrogen 26 mg/dL (7-18) H Creatinine 0.8 mg/dL (0.5-1.0) Glomerular Filtration Rate Calc 88 mL/min (>90) Random Glucose 221 mg/dL (70-105) H Total Calcium 9.0 mg/dL (8.5-10.1) MDM MDM: Differential diagnosis: Sialoadenitis, Sialolithiasis, abscess, mass, cervical lymphadenopathy There are no social concerns with this patient. Prescription drug management Prescriptions will include: Clindamycin Medical management and examination interpretation discussions were had by me with other qualified healthcare professionals as indicated for the patient's care. ED Course Orders Procedure Category Date Status Time Cbc With Differential LAB 09/28/24 Complete 17:31 Basic Metabolic Panel LAB 09/28/24 Complete 17:31 Morphine 2mg Syg PHA 09/28/24 In Process (Morphine 2mg Syg) 18:00 Us Soft Tissue Neck US 09/28/24 Resulted 17:31 Current Medications Medications (Trade) Dose Ordered Sig/Rosanne Route PRN Reason Start Time Stop Time Status Last Admin Dose Admin Morphine Sulfate (morPHINE 2MG SYG) 2 mg ONCE IM 09/28/24 18:00 09/28/24 22:00 09/28/24 18:38 Vital Signs Date Time Temp Pulse Resp B/P (MAP) Pulse Ox O2 Delivery O2 Flow Rate FiO2 09/28/24 16:14 97.9 83 16 154/103 98 Room Air [facility] [address] [place] [address] IMAGING REPORT Signed PATIENT: NISSA LIM MR#: [id number] : 1970 SEX: F AGE: 54 LOCATION: [facility] ORDER 31 STATUS: REG ER REPORT#: [id number] SERVICE 30 REASON: r/o abscess vs mass ORDERING PHYSICIAN: JOSE NAVA PROCEDURE: SOFT NECK - US SOFT TISSUE NECK Exam Type: US SOFT TISSUE NECK Clinical Information: r/o abscess vs mass Comparison: None Findings and impression: Normal-appearing lymph nodes of the left neck are seen. No lymphadenopathy. No worrisome masses or abscess or fluid collections. DICTATED BY: TEJAS BLACKMON MD DATE: 09/28/241824 ELECTRONICALLY SIGNED BY: TEJAS BLACKMON MD DATE: 09/28/241827 DX & DISP Disposition: Discharge Departure Impression: Primary Impression: Acute sialoadenitis Condition: Stable Scripts Clindamycin HCl (Clindamycin HCl) 300 Mg Capsule 1 CAP PO TID for 10 Days, #30 CAP 0 Refills Prov: JOSE NAVA 09/28/24 Additional Instructions: Your blood work today is stable. Your neck ultrasound shows normal appearing lymph nodes of the left side of the neck. There are no masses or abscesses noted on ultrasound. Your symptoms are most likely caused by an outflow obstruction by either a stone or calculus in the salivary gland or duct. Usually these stones pass spontaneously. You may start on sour lozenges, lemon juice which stimulate salivary secretions and help expel the stones. You were started on Bactrim by a previous physician however this is not the antibiotic of choice for any sort of infected stone. I will change your antibiotic to clindamycin. Keep in mind that this medication may cause diarrhea. Make sure you take this medication with probiotics/yogurt to help prevent the diarrhea. Referrals: DIEGO LARIOS PA-C (PCP) Time of Disposition: 20:15 I have reviewed the case, and I agree with, Diagnosis and Plan I performed the substantive portion of the visit. I have reviewed and personally made and approve the management plan that is documented in the note by myself or the PRANAY. I acknowledge for responsibility for the patient's management plan. JOSE NAVA Sep 28, 2024 17:34
--- NOTE | 2024-09-28 18:28 | HMCIMG ---
Exam Type: US SOFT TISSUE NECK Clinical Information: r/o abscess vs mass Comparison: None Findings and impression: Normal-appearing lymph nodes of the left neck are seen. No lymphadenopathy. No worrisome masses or abscess or fluid collections.
[2024-09-28] MEDS: morPHINE 2 MG SYG IM SCH (18:38)
[2024-09-28 19:51] LABS: BASOPHILS # (AUTO) 0.04 K/uL (0.00-0.20); BASOPHILS % (AUTO) 0.3 % (0.0-5.0); EOSINOPHILS # (AUTO) 0.14 K/uL (0.00-0.70); EOSINOPHILS % (AUTO) 1.2 % (0.0-8.0); HEMATOCRIT 43.2 % (36-48); IMMATURE GRANULOCYTE ABSOLUTE 0.06 K/uL (0-1); LYMPHOCYTES # (AUTO) 3.6 K/uL (1.0-4.8); LYMPHOCYTES % (AUTO) 30.8 % (21.0-51.0); MEAN CORPUSCULAR HGB CONC 33.1 g/dL (32.0-36.0); MEAN CORPUSCULAR VOLUME 93.5 fL (79-99); MONOCYTES # (AUTO) 0.8 K/uL (0.1-1.0); MONOCYTES % (AUTO) 6.7 % (3.0-13.0); NEUTROPHILS % (AUTO) 60.5 % (40.0-77.0); PLATELET COUNT (AUTO) 300 K/uL (130-400); RED BLOOD CELL COUNT(AUTO) 4.62 MIL/uL (4.00-5.50); RED CELL DISTRIBUTION WIDTH 12.9 % (11.0-15.5); WHITE BLOOD COUNT (AUTO) 11.7 K/uL (4.8-10.8)
[2024-09-28 20:02] LABS: CREATININE 0.8 mg/dL (0.5-1.0); POTASSIUM 4.1 mmol/L (3.5-5.1)
[2024-09-28] MEDS ORDERED: CLIN-141 PO (20:19)
[2024-09-28 20:24] VITALS: BP 141/85; PULSE 80; RESP 16; TEMP 97.9; O2SAT 98
[2024-09-28] MEDS ORDERED: KETO10TA2 PO (20:31)
== END 2024-09-28 20:28 | disposition home or self-care (01) ==
LOC: EDH 16:11
DX: K11.21 Acute sialoadenitis (principal); E11.9 Type 2 diabetes mellitus without complications; E78.00 Pure hypercholesterolemia, unspecified; I10 Essential (primary) hypertension; J44.9 Chronic obstructive pulmonary disease, unspecified; Z79.2 Long term (current) use of antibiotics; Z79.84 Long term (current) use of oral hypoglycemic drugs; Z79.85 Long-term (current) use of injectable non-insulin antidiabetic drugs; Z79.899 Other long term (current) drug therapy; Z88.1 Allergy status to other antibiotic agents; Z90.49 Acquired absence of other specified parts of digestive tract
CPT/HCPCS: 99285; 80048; 85025; 36415; 76536; 96372; J2270

== ENCOUNTER → 2024-10-06 | Outpatient (CLI) | payer OTHER, MEDICARE ==
[~2024-10-06] MED LIST changes: +CLIN-141 PO; +KETO10TA2 PO
--- NOTE | 2024-10-06 16:52 | HMCIMG ---
US SOFT TISSUE NECK REASON: SIALOADENITIS ,UNSP. COMPARISON: None TECHNIQUE: Parotic gland ultrasound study was performed. FINDINGS: Left parotid gland measures 3.8 x 1.2 x 2.1 cm. There are multiple intraparotid lymph nodes with the largest measuring 12 x 4 x 5 mm in the left parotid gland. Right parotid gland is unremarkable. IMPRESSION: Intraparotid lymph nodes in the left parotid gland.
== END | disposition home or self-care (01) ==
LOC: RAH 11:31
PROVIDERS: ATTEND Family Medicine
DX: K11.20 Sialoadenitis, unspecified (principal)
CPT/HCPCS: 76536